=== PATIENT | male | born 1980 | race Caucasian/White ===

== ENCOUNTER 2019-12-11 09:18 | Outpatient (CLI) | payer OTHER, SELFPAY ==
--- NOTE | ~2019-12-11 | CT_ITS ---
EXAMINATION: CT abdomen pelvis w con DATE: 12/11/2019 09:56 INDICATION: Abdominal pain TECHNIQUE: Computed tomography (CT) of the abdomen and pelvis was performed with 100 mL Omnipaque-350 intravenous contrast. Automated exposure control and iterative reconstruction technique were employe d. The dose-length product was 776.14 mGy-cm. COMPARISON: 06/15/2016 FINDINGS: Lung bases are clear. Heart size is normal. No pericardial or pleural effusion. 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 Interval thrombosis of the dilated and previously opacified splenic vein. Interval increase in size of numerous gastrosp lenic collaterals which also extend to the earl hepatis. There are also gastroesophageal varices juanjose ng side a small sliding-type hiatal hernia. There is also new thrombosis of a previously contrast opa cified portal vein branch in segment IVb of the liver. 6 mm cyst in segment IVb. Splenomegaly measuri ng 16.6 cm in maximal length. Decompressed gallbladder is unremarkable. There are peripancreatic carlos aterals and stranding which extend into the root of the mesentery most likely related to the thrombos is of the portal venous system although acute interstitial pancreatitis cannot be absolute excluded. Pancreas proper appears normal with homogeneous parenchymal enhancement. Bilateral bilateral adrenal glands and kidneys are normal. A suture seen at the cecum at the previous base of the appendix which is no longer visualized consistent with interval appendectomy. There is mild colonic diverticulosis w ith a sigmoid predominance. There is no adjacent inflammatory change to suggest diverticulitis. Posto perative changes with suture line at the rectoanal junction. No bowel obstruction. Bladder is normal. No free intraperitoneal gas or fluid. No pathologically enlarged abdominal or pelvic lymphadenopathy . 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 IMPRESSION: 1. 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 Li ne 2. Peripancreatic stranding extending to the root of the mesentery which is likely related to the thr ombosis of the portal venous system would correlate with amylase and lipase levels to exclude less li yovany acute interstitial pancreatitis. 3. Small sliding-type hiatal hernia with gastroesophageal varices. 4. Mild diverticulosis. Reviewed, dictated and finalized at location A. IMPRESSION: 1. 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 Line 2. Peripancreatic stranding extending to the root of the mesentery which is lik haider related to the thrombosis of the portal venous system would correlate with amylase and lipase levels to exclude less likely acute interstitial pancreatiti s. 3. Small sliding-type hiatal hernia with gastroesophageal varices. 4. Mild diverticulosis.
[2019-12-11 09:34] LABS: Hematocrit 45.2 % (42.0-52.0); Hemoglobin 14.7 g/dL (14.0-18.0); Immature Platelet Fraction Pct 4.7 % (0.9-11.2); Mean Corpuscular HGB Conc 32.5 g/dl (32-36); Mean Corpuscular Hemoglobin 28.3 pg (26-34); Mean Corpuscular Volume 87.1 fl (80-100); Mean Platelet Volume 10.7 fl (7.4-10.4); Platelet Count Result 119 k/mm3 (150-375); Red Blood Count 5.19 M/mm3 (4.6-6.20); Red Cell Distribution Width 12.2 % (11.5-14.5); White Blood Count 4.3 K/mm3 (4.5-10.0)
[2019-12-11 09:45] LABS: Alanine Aminotransferase 43 U/L (4-50); Albumin Level 4.1 g/dL (3.5-5.1); Alkaline Phosphatase 60 U/L (38-126); Anion Gap 5 mmol/L (8-16); Aspartate Amino Transferase 35 U/L (17-59); Bilirubin,Total 0.6 mg/dL (0.2-1.3); Blood Urea Nitrogen 18 mg/dL (9-20); Calcium 8.4 mg/dL (8.4-10.2); Carbon Dioxide 31 mmol/L (22-30); Chloride 102 mmol/L (98-107); Estimated Glomerular Filt Rate > 60; Glucose 101 mg/dL (75-110); Lipase 78 U/L (23-300); Potassium 3.9 mmol/L (3.4-5.0); Sodium 138 mmol/L (137-145)
[2019-12-11 10:10] LABS: Erythrocyte Sedimentation Rate 15 mm/hr (0-20)
== END 2019-12-11 09:19 | disposition home or self-care (01) ==
PROVIDERS: PCP Family Medicine; Visit Provider Family Medicine
DX: R10.9 Unspecified abdominal pain (principal); I81 Portal vein thrombosis; K57.30 Diverticulosis of large intestine without perforation or abscess without bleeding; K44.9 Diaphragmatic hernia without obstruction or gangrene
CPT/HCPCS: 36415; 74177; 80053; 83690; 85027; 85055; 85652; Q9967

== ENCOUNTER → 2020-03-06 15:58 | Outpatient (CLI) | payer OTHER, SELFPAY ==
--- NOTE | ~2020-03-06 | XR_ITS ---
EXAMINATION: XR knee LT 3V DATE: 03/06/2020 16:26 INDICATION: Left knee pain. TECHNIQUE: 3 views of left knee were obtained. COMPARISON: None. FINDINGS: Bone alignment is normal. No fracture. Joint spaces are well maintained. There is a small k nee joint effusion. IMPRESSION: 1. Small left knee joint effusion. Reviewed, dictated and finalized at location A. TERM
== END ==
PROVIDERS: PCP Family Medicine; Visit Provider Physician Assistant
DX: M25.462 Effusion, left knee (principal)
CPT/HCPCS: 73562

== ENCOUNTER 2023-05-17 14:54 | Outpatient (CLI) | payer BC, SELFPAY ==
[2023-05-17 15:24] LABS: Alveolar/Arterial O2 Gradient 15.3 mmHg; Base Excess ABG -0.6 mEq/l (+/-2.0); Carboxyhemoglobin 0.4 % THb (0-2.0); Fractional Inspired Oxygen 21 %; Methemoglobin ABG 0.4 %THb (0-1.5); Oxygen Content ABG 21.9 %vol (16.0-22.0); Oxygen Saturation ABG 97.8 % (95.0-100.0); Oxyhemoglobin 96.6 % THb (90.0-100.0); PCO2 ABG 31.4 mmHg (35.0-45.0); PO2 ABG 96.8 mmHg (80.0-100.0); PO2 FiO2 Ratio Arterial Blood 4.61 %; Reduced Hemoglobin 2.6 %THb (0-5.0); Total Hemoglobin 16.1 g/dL (12.0-18.0); pH ABG 7.464 (7.350-7.450)
[2023-05-17 15:25] LABS: Device ROOM AIR; Modified Allen's Test Pass
== END 2023-05-17 14:55 | disposition home or self-care (01) ==
LOC: ANHPFT 14:55
PROVIDERS: PCP Family Medicine
DX: R06.02 Shortness of breath (principal)
CPT/HCPCS: 36600; 82375; 82805; 83050